=== PATIENT | female | born 1960 | race Caucasian/White ===

== ENCOUNTER 2023-09-25 09:07 | Day surgery (SDC) | payer OTHER, SELFPAY ==
[2023-09-25] MEDS: LACTATED RINGERS 1,000 ML 100 ML IV (09:27)
[2023-09-25 09:29] VITALS: BP 149/88; PULSE 84; RESP 17; TEMP 36.6; O2SAT 97
--- NOTE | 2023-09-25 10:06 | P.HP_ITS ---
History of Present Illness History of Present Illness Date Patient Seen: 09/25/23 Time Patient Seen: 10:06 Chief complaint: Screening Colonoscopy Narrative: Dorothy is a 63-year-old woman who is here for colonoscopy. Her last colonoscopy was about 12 years ago and was normal. No family history of colon cancer. [facility] Medical History Severe obesity (BMI 35.0-35.9 with comorbidity) Allergic rhinitis Polyneuropathy following chemotherapy PULIDO (nonalcoholic steatohepatitis) Plantar warts Eczema Depression (~1997) Headache Foot pain (~2019) Ankle pain (~2021) Measles Chicken pox (~1991) Breast cancer (~2017) Surgical History Anesthesia History of left mastectomy (~2017) History of laparoscopy (~1989) Family History Father Prostate cancer Mother History of ischemic stroke Sedentary lifestyle Grandmother Stroke Grandmother Alzheimer's dementia Family/Other Anxiety CML (chronic myelocytic leukemia) Social History details: , 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 acidophilus/Bifid. animalis 1 cap PO DAILY 02/05/23 06/03/23 History [Daily Probiotic] ascorbic acid (vitamin C) 1,000 mg 1 g PO BID 02/05/23 06/03/23 History tablet calcium 150 mg tablet 150 mg PO DAILY 02/05/23 06/03/23 History cholecalciferol (vitamin D3) 125 125 mcg PO DAILY 02/05/23 06/03/23 History mcg (5,000 unit) capsule cyanocobalamin (vitamin B-12) 1,000 mcg PO DAILY 02/05/23 06/03/23 History 1,000 mcg capsule exemestane 25 mg tablet 25 mg PO DAILY 02/05/23 09/25/23 History livercare 1 cap PO DAILY 02/05/23 06/03/23 History magnesium 225 mg PO BID 02/05/23 06/03/23 History multivitamin 1 tab PO DAILY 02/05/23 06/03/23 History mushroom 600 mg PO DAILY 02/05/23 06/03/23 History omega 1-sji-lri-fish oil 1,000 mg 1 cap PO BID 02/05/23 06/03/23 History (120 mg-180 mg) capsule (Fish Oil) pectasol 2.4 g Not Applicable DAILY 02/05/23 06/03/23 History potassium 200 mg PO DAILY 02/05/23 06/03/23 History turmeric root extract 500 mg 500 mg PO BID 02/05/23 06/03/23 History capsule meloxicam 15 mg tablet 15 mg PO DAILY Joint Pain #90 tabs 06/03/23 09/25/23 Rx prednisone 10 mg tablet See Rx Instructions .Route 06/03/23 06/03/23 Rx .COMPLEX #20 tabs sodium sul 1.479 gram-potas ch See Rx Instructions PO PER PKG DIR 07/08/23 Rx 0.188 gram-magnes sul 0.225 gram #24 tabs tablet (Sutab) Allergies Allergy/AdvReac Type Severity Reaction Status Date / Time diclofenac [From Voltaren] Allergy Mild Hives Verified 09/25/23 09:21 Exam Vital Signs (past 8 hours): - 09/25/23 09:29 Temperature 97.9 F Pulse Rate 84 Respiratory Rate 17 Blood Pressure 149/88 H Pulse Oximetry 97 Oxygen Delivery Method Room Air Oxygen Delivery Method Room Air Const General: healthy appearing Resp Effort & Inspection: normal respiratory effort Assessment & Plan Assessment and plan (1) Colon cancer screening: Status: Acute Plan We reviewed the risks and benefits of colonoscopy for colon cancer screening and she would like to proceed.
[2023-09-25 10:30] VITALS: BP 115/77; PULSE 70; RESP 14; TEMP 37.1; O2SAT 95
--- NOTE | 2023-09-25 10:31 | PM.OP.COLON ---
Operative Date/Time/Diagnoses Date of procedure: 09/25/23 Time of procedure: 10:31 Pre-op diagnosis: Colon cancer screening Post-op diagnosis: same Procedure & Clinicians Study performed: Colonoscopy Same procedure as scheduled: Yes Surgeon: James Garza Procedure Notes Procedure in detail: Surgeon: James Garza MD Anesthesia: Grady Bolden D.O. Procedure: The patient was brought to the endoscopy suite, placed in left lateral decubitus position. The patient was connected to monitoring devices. A time-out was performed. Sedation was administered. Once the patient was adequately sedated, a digital rectal exam was performed and was normal. The scope was then inserted and advanced to the cecum where the appendiceal orifice was identified and photographed. The scope was then slowly withdrawn over greater than 6 minutes. The mucosa was thoroughly inspected. No abnormalities were found. The scope was retroflexed in the rectum. No abnormalities were seen. The scope was straightened and removed. The patient was awakened and brought to recovery. Scope withdrawal time: 6 minutes Sedation time: 11 minutes EBL: 0 Findings: Normal colon Post-procedure Recommendations: Colonoscopy in 10 years Disposition: PACU
[2023-09-25 10:35] VITALS: BP 124/82; PULSE 71; RESP 18; O2SAT 96
[2023-09-25 10:40] VITALS: BP 126/87; PULSE 67; RESP 16; O2SAT 96
[2023-09-25 10:47] VITALS: BP 125/86; PULSE 66; RESP 18; O2SAT 96
== END 2023-09-25 10:54 | disposition home or self-care (01) ==
PROVIDERS: PCP Internal Medicine; Referring Provider Surgery; Visit Provider Surgery
PROC: 0DJD8ZZ Inspection of Lower Intestinal Tract, Via Natural or Artificial Opening Endoscopic (ICD-10-PCS; CPT 45378; principal; 2023-09-25 10:30)
DX: Z12.11 Encounter for screening for malignant neoplasm of colon (principal)
CPT/HCPCS: 45378; J2704